=== PATIENT | female | born 1950 | race African-American/Black ===

== ENCOUNTER 2022-02-28 08:04 | Emergency (ER) | payer MEDICARE, OTHER ==
[~2022-02-28] VITALS: Ht 157.5 cm; Wt 122.5 kg
[2022-02-28 09:10] LABS: Basophils # (auto) 0.1 10 ^3/uL (0-0.2); Basophils % (auto) 0.7 % (0.0-2.0); Eosinophils # (auto) 0.3 10 ^3/uL (0-0.8); Eosinophils % (auto) 2.9 % (0.0-7.0); Hematocrit 32.3 % (36.0-46.0); Hemoglobin 10.8 g/dL (12.2-16.2); Lymphocytes # (auto) 1.8 10 ^3/uL (0.4-5.4); Lymphocytes % (auto) 17.6 % (10.0-50.0); Mean Corpuscular Hemoglobin 30.6 pg (28.0-32.0); Mean Corpuscular Hgb Conc. 33.6 g/dL (32.0-36.0); Mean Corpuscular Volume 91.1 fL (80.0-100.0); Monocytes # (auto) 0.8 10 ^3/uL (0-1.3); Monocytes % (auto) 7.4 % (0.0-12.0); Neutrophils # (auto) 7.4 10 ^3/uL (1.6-8.6); Neutrophils % (auto) 71.4 % (37.0-80.0); Nucleated Red Blood Cells % 0.1 %; Red Blood Cells 3.55 10^6/uL (4.0-5.20); Red Cell Distribution Width 14.1 % (11.8-14.3); White Blood Cell 10.4 10^3/uL (4.4-10.8)
[2022-02-28] MEDS ORDERED: CLINDAMYCIN 600 MG/4 ML VL IM ONE (09:30)
[2022-02-28] MEDS ORDERED: LIDOCAINE 1%HCL (LOCAL ANESTH) 10 ML MDV ONE (09:36)
[2022-02-28] MEDS ORDERED: ONDANSETRON ODT 4 MG TAB PO ONE ×2 (09:45→12:45)
[2022-02-28] MEDS ORDERED: cefTRIAXone SOD 1,000 MG VL IM ONE (09:45)
[2022-02-28] MEDS ORDERED: HYDROcodone-ACET 5/325MG TAB PO ONE (09:45)
[2022-02-28] MEDS ORDERED: MORPHINE SULFATE INJECTION 2 MG/ML SYRG IM ONE (12:45)
[2022-02-28] MEDS ORDERED: CLIN300C8 PO (12:50)
[2022-02-28] MEDS ORDERED: CEPH-509 PO (12:50)
[2022-02-28] MEDS ORDERED: ACE3T PO (12:50)
[2022-02-28 12:59] VITALS: BP 134/87
[2022-02-28] MEDS ORDERED: HYDR-4902 PO (13:06)
== END 2022-02-28 13:42 | disposition home or self-care (01) ==
LOC: ER 08:04
DX: N61.1 Abscess of the breast and nipple (principal); I11.0 Hypertensive heart disease with heart failure; I50.9 Heart failure, unspecified; E11.9 Type 2 diabetes mellitus without complications; J44.9 Chronic obstructive pulmonary disease, unspecified; Z79.2 Long term (current) use of antibiotics; Z79.899 Other long term (current) drug therapy; Z88.5 Allergy status to narcotic agent; Z88.8 Allergy status to other drugs, medicaments and biological substances
CPT/HCPCS: 36415; 76642; 85025; 96372; 99285; J0696; J2001; J2270; Q0162

== ENCOUNTER → 2023-11-13 | Outpatient (CLI) | payer MEDICARE, MEDICAID ==
[~2023-11-13] MED LIST: CEPH-509 PO; CLIN300C70 PO; HYDR-4902 PO
== END | disposition home or self-care (01) ==
LOC: RT 09:20
PROVIDERS: ATTEND Internal Medicine Pulmonary Disease
DX: R06.02 Shortness of breath (principal); J44.89 Other specified chronic obstructive pulmonary disease; F17.210 Nicotine dependence, cigarettes, uncomplicated
CPT/HCPCS: 94060; 94727; 94729

== ENCOUNTER → 2023-12-21 | Outpatient (CLI) | payer MEDICARE, MEDICAID | END | disposition home or self-care (01) | LOC: Rad HDHVI 08:09 | PROVIDERS: ATTEND Internal Medicine Cardiovascular Disease | DX: Z01.818 Encounter for other preprocedural examination (principal) | CPT/HCPCS: 93306 ==

== ENCOUNTER → 2023-12-31 | Outpatient (CLI) | payer MEDICARE, MEDICAID ==
[~2023-12-31] VITALS: Ht 157.5 cm; Wt 108.9 kg
[~2023-12-31] MED LIST changes: +ADENOSINE 90 MG/30 ML INJ IV ONE; +ADENOSINE 91 MG in GIVE UN-DILUTED 0 ML IV ONE
== END | disposition home or self-care (01) ==
LOC: Rad HDHVI 08:10
PROVIDERS: ATTEND Internal Medicine Cardiovascular Disease
DX: Z01.810 Encounter for preprocedural cardiovascular examination (principal); I10 Essential (primary) hypertension; E11.9 Type 2 diabetes mellitus without complications; E78.00 Pure hypercholesterolemia, unspecified; J44.9 Chronic obstructive pulmonary disease, unspecified; Z79.84 Long term (current) use of oral hypoglycemic drugs; Z79.899 Other long term (current) drug therapy
CPT/HCPCS: 78452; 93005; 96374; 96375; A9500; J0153

== ENCOUNTER → 2024-05-14 | Outpatient (CLI) | payer MEDICARE, MEDICAID ==
[~2024-05-14] MED LIST changes: -ADENOSINE 90 MG/30 ML INJ IV ONE; -ADENOSINE 91 MG in GIVE UN-DILUTED 0 ML IV ONE; +CLIN1CAP70 PO; -CLIN300C70 PO
[2024-05-14 07:22] LABS: Eosinophils # (auto) 0.2 10 ^3/uL (0-0.8); Hemoglobin 9.8 g/dL (12.2-16.2); White Blood Cell 10.1 10^3/uL (4.4-10.8)
[2024-05-14 07:24] LABS: Basophils # (auto) 0.2 10 ^3/uL (0-0.2); Basophils % (auto) 1.6 % (0.0-2.0); Eosinophils % (auto) 2.3 % (0.0-7.0); Hematocrit 31.3 % (36.0-46.0); Lymphocytes # (auto) 2.5 10 ^3/uL (0.4-5.4); Lymphocytes % (auto) 24.6 % (10.0-50.0); Mean Corpuscular Hemoglobin 25.2 pg (28.0-32.0); Mean Corpuscular Hgb Conc. 31.2 g/dL (32.0-36.0); Mean Corpuscular Volume 80.7 fL (80.0-100.0); Monocytes # (auto) 1.2 10 ^3/uL (0-1.3); Monocytes % (auto) 12.2 % (0.0-12.0); Neutrophils % (auto) 59.3 % (37.0-80.0); Nucleated Red Blood Cells % 0.2 %; Red Blood Cells 3.88 10^6/uL (4.0-5.20); Red Cell Distribution Width 24.9 % (11.8-14.3)
[2024-05-14 08:08] LABS: Alanine Aminotransferase 18 U/L (7-40); Albumin 4.3 g/dL (3.2-4.8); Alkaline Phosphatase 104 U/L (46-116); Anion Gap 9 (5-15); Aspartate Aminotransferase 11 U/L (13-40); BUN/Creatinine Ratio 25.5 (10.0-20.0); Bilirubin, Total 0.2 mg/dL (0.2-1.0); Blood Urea Nitrogen 38 mg/dL (9-23); Calcium 9.4 mg/dL (8.5-10.1); Carbon Dioxide 14 mmol/L (20-30); Chloride 112 mmol/L (98-107); Glucose 76 mg/dL (74-106); Potassium 5.2 mmol/L (3.5-5.1); Sodium 135 mmol/L (136-145); Total Protein 7.4 g/dL (5.7-8.2)
[2024-05-14 08:33] LABS: Anisocytosis Slight; Hypochromia Slight; Platelet Estimate Increased; Target Cell FEW
[2024-05-14 08:42] LABS: Creatinine, Urine 29.39 mg/dL (30.0-125.0)
[2024-05-14 08:48] LABS: Micro Albumin < 3.0 mg/L (<30.0)
[2024-05-15 08:06] LABS: Complement C3 134 mg/dL (82-167); Rheumatoid Arthritis Factor 10.7 IU/mL (<14.0); Thyroid Peroxidase (TPO) Ab 13 IU/mL (0-34)
[2024-05-15 12:06] LABS: Anti-Nuclear Antibody Direct Negative (Negative); Anti-dsDNA Antibody 1 IU/mL (0-9); Antiscleroderma-70 Antibody <0.2 AI (0.0-0.9); RNP Antibody <0.2 AI (0.0-0.9); Sjogren's Anti-SS-A Antibody <0.2 AI (0.0-0.9); Sjogren's Anti-SS-B Antibody <0.2 AI (0.0-0.9); Smith Antibody <0.2 AI (0.0-0.9)
[2024-05-16 12:06] LABS: Actin (Smooth Muscle) Antibody 8 Units (0-19); Mitochondrial (M2) Antibody 24.2 Units (0.0-20.0)
[2024-05-19 12:06] LABS: Anti-Striated Muscle Antibody Negative (Neg:<1:100)
[2024-05-19 13:06] LABS: Antiparietal Cell Antibody 13.5 Units (0.0-20.0)
== END | disposition home or self-care (01) ==
LOC: LAB 07:03
PROVIDERS: ATTEND Internal Medicine
DX: N18.32 Chronic kidney disease, stage 3b (principal); E11.22 Type 2 diabetes mellitus with diabetic chronic kidney disease; D63.1 Anemia in chronic kidney disease
CPT/HCPCS: 36415; 80053; 82043; 82570; 83036; 84443; 85025; 86160; 86225; 86235; 86376; 86431

== ENCOUNTER 2024-07-30 09:39 | Inpatient (IN) | payer MEDICARE, MEDICAID ==
[~2024-07-30] VITALS: Ht 157.5 cm; Wt 118.6 kg
[~2024-07-30 09:39] MED LIST changes: -ALBUAER3 IN; -ALPR2TAB6 PO; -AMLO1TAB22 PO; -ATOR40TA52 PO; -CYCL-839 PO; -FURO40TA4 PO; -GABA300T4 PO; -LABE100T7 PO; -LISI40TA16 PO; -METF-370 PO; -PANT40TA57 PO; -PRO125RS PR; -SEMA2INJ3 SC
[2024-07-30] MEDS ORDERED: CALCIUM GLUC 1,000mg/50ml-NS 50 ML IV SCH (10:30)
[2024-07-30 14:14] VITALS: PULSE 55; RESP 16; O2SAT 99
[2024-07-30 14:32] LABS: Basophils # (auto) 0.2 10 ^3/uL (0-0.2); Basophils % (auto) 1.8 % (0.0-2.0); Eosinophils # (auto) 0.6 10 ^3/uL (0-0.8); Eosinophils % (auto) 6.7 % (0.0-7.0); Hemoglobin 10.2 g/dL (12.2-16.2); Lymphocytes # (auto) 3.3 10 ^3/uL (0.4-5.4); Lymphocytes % (auto) 37.3 % (10.0-50.0); Mean Corpuscular Hemoglobin 29.3 pg (28.0-32.0); Mean Corpuscular Hgb Conc. 31.8 g/dL (32.0-36.0); Mean Corpuscular Volume 92.2 fL (80.0-100.0); Monocytes # (auto) 0.8 10 ^3/uL (0-1.3); Monocytes % (auto) 8.9 % (0.0-12.0); Neutrophils # (auto) 3.9 10 ^3/uL (1.6-8.6); Neutrophils % (auto) 45.3 % (37.0-80.0); Nucleated Red Blood Cells % 0.2 %; Platelet Count (auto) 386 10^3/uL (140-450); Red Blood Cells 3.47 10^6/uL (4.0-5.20); Red Cell Distribution Width 19.9 % (11.8-14.3); White Blood Cell 8.7 10^3/uL (4.4-10.8)
[2024-07-30 14:49] LABS: Anion Gap 7 (5-15); Carbon Dioxide 15 mmol/L (20-30); Chloride 112 mmol/L (98-107); Sodium 134 mmol/L (136-145)
[2024-07-30 14:50] LABS: Calcium 9.3 mg/dL (8.7-10.4)
[2024-07-30 14:54] LABS: Glucose 84 mg/dL (74-106)
[2024-07-30 14:55] LABS: BUN/Creatinine Ratio 21.7 (10.0-20.0); Blood Urea Nitrogen 51 mg/dL (9-23)
[2024-07-30 14:57] LABS: Phosphorus 4.7 mg/dL (2.4-5.1)
[2024-07-30 15:03] LABS: Potassium 6.9 mmol/L (3.5-5.1)
[2024-07-30] MEDS: DEXTROSE (50%) 50ML SYRG IV ONE (15:05)
[2024-07-30] MEDS: InsuLIN REG 1unit/0.01ml Soln (100units/ml) IV ONE (15:05)
[2024-07-30] MEDS: SODIUM BICARB 8.4% 50Meq/50ml SYR Vial IV ONE (15:05)
[2024-07-30] MEDS: CALCIUM GLUC 1,000mg/50ml-NS 50 ML IV SCH (15:05)
[2024-07-30 19:45] VITALS: PULSE 78; RESP 20; O2SAT 97
[2024-07-30] MEDS: MORPHINE SULFATE 4 MG/ML SYR/VIAL IV ONE (20:50)
[2024-07-30] MEDS ORDERED: NITROGLYCERIN 0.4 MG SL TAB SL PRN (21:30)
[2024-07-30] MEDS ORDERED: DEXTROSE (50%) 50ML SYRG IV PRN (21:30)
[2024-07-30] MEDS ORDERED: MORPHINE SULFATE INJ 2 MG/ml SYRG IV PRN (21:30)
[2024-07-30] MEDS: GABAPENTIN 400 MG CAP PO SCH (21:50)
[2024-07-30] MEDS: SODIUM ZIRCONIUM CYCL 10 GM PAK PO ONE (21:50)
[2024-07-30] MEDS: LABETALOL HCL 200 MG TAB PO SCH (21:50)
[2024-07-30] MEDS: ACCU-CHEK COMFORT CURVE STRIP VI SCH (21:59)
[2024-07-30] MEDS: InsuLIN REG 1unit/0.01ml Soln (100units/ml) SC SCH (21:59)
[2024-07-30] MEDS: APIXABAN 5 MG TAB PO SCH (22:01)
[2024-07-30 22:24] LABS: Urine Bacteria None Seen /hpf (None Seen)
[2024-07-30 22:46] LABS: Urine Blood Negative /uL (Negative); Urine Clarity Clear (Clear); Urine Color Light-Yellow (Yellow); Urine Protein, UAD Negative (Negative); Urine Urobilinogen Normal (Negative); Urine WBC 3 /hpf (0 - 5)
[2024-07-30 22:53] LABS: Chloride 113 mmol/L (98-107); Sodium 133 mmol/L (136-145)
[2024-07-30 22:54] LABS: Anion Gap 4 (5-15); Calcium 9.2 mg/dL (8.7-10.4); Carbon Dioxide 16 mmol/L (20-30)
[2024-07-30 22:59] LABS: BUN/Creatinine Ratio 18.7 (10.0-20.0); Blood Urea Nitrogen 44 mg/dL (9-23); Glucose 147 mg/dL (74-106)
[2024-07-30 23:17] LABS: Potassium 6.3 mmol/L (3.5-5.1)
[2024-07-30] MEDS: ALBUMIN 5% 250 ML IV ONE (23:51)
[2024-07-31] VITALS (8 sets, daily range): BP systolic 89–126; BP diastolic 42–71; PULSE 61–68; RESP 18–20; TEMP 97.5–98.1; O2SAT 92–98
[2024-07-31] MEDS: InsuLIN REG 1unit/0.01ml Soln (100units/ml) IV ONE (06:45)
[2024-07-31] MEDS: SODIUM ZIRCONIUM CYCL 10 GM PAK PO ONE (07:03)
[2024-07-31] MEDS: CALCIUM GLUC 1,000mg/50ml-NS 50 ML IV ONE (08:21)
[2024-07-31] MEDS: DEXTROSE (50%) 50ML SYRG IV ONE (08:21)
[2024-07-31] MEDS: SODIUM BICARB 8.4% 50Meq/50ml SYR Vial IV ONE (08:21)
[2024-07-31] MEDS: amLODIPine BESYLATE 5 MG TAB PO SCH (09:01)
[2024-07-31 11:42] LABS: Chloride 111 mmol/L (98-107); Sodium 137 mmol/L (136-145)
[2024-07-31 11:43] LABS: Anion Gap 6 (5-15); Calcium 9.6 mg/dL (8.7-10.4); Carbon Dioxide 20 mmol/L (20-31)
[2024-07-31 11:48] LABS: BUN/Creatinine Ratio 20.7 (10.0-20.0); Blood Urea Nitrogen 46 mg/dL (9-23); Glucose 83 mg/dL (74-106)
[2024-07-31] MEDS ORDERED: METF-370 PO (11:49)
[2024-07-31] MEDS ORDERED: ALPR2TAB6 PO (11:49)
[2024-07-31] MEDS ORDERED: LABE100T7 PO (11:49)
[2024-07-31] MEDS ORDERED: LISI40TA16 PO (11:49)
[2024-07-31] MEDS ORDERED: SEMA2INJ3 SC (11:49)
[2024-07-31] MEDS ORDERED: AMLO1TAB22 PO (11:49)
[2024-07-31] MEDS ORDERED: FURO40TA4 PO (11:49)
[2024-07-31] MEDS ORDERED: ATOR40TA52 PO (11:49)
[2024-07-31] MEDS ORDERED: CYCL-839 PO (11:49)
[2024-07-31] MEDS ORDERED: GABA300T4 PO (11:49)
[2024-07-31] MEDS ORDERED: PANT40TA57 PO (11:49)
[2024-07-31] MEDS ORDERED: PRO125RS PR (11:49)
[2024-07-31] MEDS ORDERED: ALBUAER3 IN (11:49)
[2024-07-31 11:50] LABS: Potassium 6.2 mmol/L (3.5-5.1)
[2024-07-31 13:44] LABS: Basophils # (auto) 0.1 10 ^3/uL (0-0.2); Basophils % (auto) 1.6 % (0.0-2.0); Eosinophils # (auto) 0.6 10 ^3/uL (0-0.8); Eosinophils % (auto) 7.1 % (0.0-7.0); Hematocrit 27.6 % (36.0-46.0); Hemoglobin 8.9 g/dL (12.2-16.2); Lymphocytes # (auto) 2.4 10 ^3/uL (0.4-5.4); Lymphocytes % (auto) 29.8 % (10.0-50.0); Mean Corpuscular Hemoglobin 29.5 pg (28.0-32.0); Mean Corpuscular Hgb Conc. 32.4 g/dL (32.0-36.0); Monocytes % (auto) 12.6 % (0.0-12.0); Neutrophils # (auto) 3.9 10 ^3/uL (1.6-8.6); Neutrophils % (auto) 48.9 % (37.0-80.0); Nucleated Red Blood Cells % 0.1 %; Platelet Count (auto) 361 10^3/uL (140-450); Red Blood Cells 3.03 10^6/uL (4.0-5.20); Red Cell Distribution Width 19.3 % (11.8-14.3); White Blood Cell 7.9 10^3/uL (4.4-10.8)
[2024-07-31 13:52] LABS: Alanine Aminotransferase 28 U/L (7-40); Alkaline Phosphatase 105 U/L (46-116); Anion Gap 6 (5-15); Aspartate Aminotransferase 21 U/L (13-40); Bilirubin, Total 0.3 mg/dL (0.2-1.0); Blood Urea Nitrogen 47 mg/dL (9-23); Calcium 9.7 mg/dL (8.7-10.4); Carbon Dioxide 18 mmol/L (20-31); Chloride 112 mmol/L (98-107); Glucose 81 mg/dL (74-106); Sodium 136 mmol/L (136-145); Total Protein 6.9 g/dL (5.7-8.2)
[2024-07-31 13:54] LABS: Potassium 6.2 mmol/L (3.5-5.1)
[2024-07-31] MEDS: HYDROcodone-ACET 10/325MG TAB PO PRN (15:22)
[2024-07-31] MEDS: SODIUM ZIRCONIUM CYCL 10 GM PAK PO SCH (18:01)
[2024-07-31 19:40] LABS: Alanine Aminotransferase 51 U/L (7-40); Alkaline Phosphatase 131 U/L (46-116); Anion Gap 6 (5-15); Aspartate Aminotransferase 61 U/L (13-40); BUN/Creatinine Ratio 19.8 (10.0-20.0); Bilirubin, Total 0.2 mg/dL (0.2-1.0); Blood Urea Nitrogen 47 mg/dL (9-23); Calcium 9.1 mg/dL (8.7-10.4); Carbon Dioxide 18 mmol/L (20-31); Chloride 112 mmol/L (98-107); Glucose 90 mg/dL (74-106); Sodium 136 mmol/L (136-145); Total Protein 6.9 g/dL (5.7-8.2)
[2024-07-31 20:00] LABS: Potassium 6.5 mmol/L (3.5-5.1)
[2024-08-01] VITALS (8 sets, daily range): BP systolic 100–122; BP diastolic 50–71; PULSE 67–81; RESP 16–20; TEMP 97.5–97.9; O2SAT 94–99
[2024-08-01 06:47] LABS: Basophils # (auto) 0.1 10 ^3/uL (0-0.2); Eosinophils # (auto) 0.6 10 ^3/uL (0-0.8); Hematocrit 25.8 % (36.0-46.0)
[2024-08-01 06:51] LABS: Basophils % (auto) 1.5 % (0.0-2.0); Eosinophils % (auto) 6.9 % (0.0-7.0); Hemoglobin 8.5 g/dL (12.2-16.2); Lymphocytes # (auto) 2.6 10 ^3/uL (0.4-5.4); Lymphocytes % (auto) 31.2 % (10.0-50.0); Mean Corpuscular Hemoglobin 29.8 pg (28.0-32.0); Mean Corpuscular Volume 90.2 fL (80.0-100.0); Monocytes % (auto) 12.4 % (0.0-12.0); Platelet Count (auto) 350 10^3/uL (140-450); Red Blood Cells 2.86 10^6/uL (4.0-5.20); Red Cell Distribution Width 19.2 % (11.8-14.3); White Blood Cell 8.3 10^3/uL (4.4-10.8)
[2024-08-01 07:11] LABS: Alanine Aminotransferase 41 U/L (7-40); Albumin 3.6 g/dL (3.2-4.8); Alkaline Phosphatase 123 U/L (46-116); Anion Gap 6 (5-15); Aspartate Aminotransferase 32 U/L (13-40); BUN/Creatinine Ratio 21.6 (10.0-20.0); Bilirubin, Total < 0.2 mg/dL (0.2-1.0); Blood Urea Nitrogen 47 mg/dL (9-23); Carbon Dioxide 19 mmol/L (20-31); Chloride 113 mmol/L (98-107); Glucose 85 mg/dL (74-106); Sodium 138 mmol/L (136-145); Total Protein 6.3 g/dL (5.7-8.2)
[2024-08-01 07:23] LABS: Potassium 6.5 mmol/L (3.5-5.1)
[2024-08-01] MEDS: SODIUM ZIRCONIUM CYCL 10 GM PAK PO ONE (12:07)
[2024-08-01] MEDS: DEXTROSE (50%) 50ML SYRG IV ONE (12:08)
[2024-08-01] MEDS: InsuLIN REG 1unit/0.01ml Soln (100units/ml) IV ONE (12:08)
[2024-08-01] MEDS: SODIUM CHLORIDE 0.9% 1,000 ML IV ONE (14:53)
[2024-08-01] MEDS: BUMETANIDE 2.5mg/10ml (0.25 mg/ml) INJ IV ONE (14:54)
[2024-08-01] MEDS: FUROSEMIDE 20 MG TAB PO ONE (17:20)
[2024-08-01 17:41] LABS: Chloride 113 mmol/L (98-107); Potassium 5.5 mmol/L (3.5-5.1); Sodium 137 mmol/L (136-145)
[2024-08-01 17:42] LABS: Anion Gap 3 (5-15); Carbon Dioxide 21 mmol/L (20-31)
[2024-08-01 17:48] LABS: BUN/Creatinine Ratio 18.8 (10.0-20.0); Blood Urea Nitrogen 42 mg/dL (9-23); Glucose 90 mg/dL (74-106)
[2024-08-01] MEDS: ONDANSETRON HCL 4 MG/2 ML VIAL IV PRN (22:23)
[2024-08-02] VITALS (8 sets, daily range): BP systolic 96–137; BP diastolic 46–79; PULSE 59–78; RESP 18–20; TEMP 97.6–98.2; O2SAT 94–100
[2024-08-02 08:46] LABS: Urine Bacteria None Seen /hpf (None Seen)
[2024-08-02 08:56] LABS: Urine Blood Negative /uL (Negative); Urine Clarity Clear (Clear); Urine Color Light-Yellow (Yellow); Urine Protein, UAD Negative (Negative); Urine Specific Gravity 1.012 (1.001-1.035); Urine Urobilinogen Normal (Negative); Urine WBC 5 /hpf (0 - 5); Urine pH 5.5 (5.0-9.0)
[2024-08-02 09:09] LABS: Creatinine, Urine 57.95 mg/dL (30.0-125.0)
[2024-08-02] MEDS: FUROSEMIDE 20 MG TAB PO SCH (09:31)
[2024-08-02 11:32] LABS: Alanine Aminotransferase 54 U/L (7-40); Albumin 4.1 g/dL (3.2-4.8); Alkaline Phosphatase 148 U/L (46-116); Anion Gap 6 (5-15); Aspartate Aminotransferase 34 U/L (13-40); BUN/Creatinine Ratio 18.6 (10.0-20.0); Bilirubin, Total 0.2 mg/dL (0.2-1.0); Blood Urea Nitrogen 41 mg/dL (9-23); Calcium 9.2 mg/dL (8.7-10.4); Carbon Dioxide 22 mmol/L (20-31); Chloride 108 mmol/L (98-107); Glucose 95 mg/dL (74-106); Sodium 136 mmol/L (136-145); Total Protein 7.1 g/dL (5.7-8.2)
[2024-08-02 11:34] LABS: Potassium 5.7 mmol/L (3.5-5.1)
[2024-08-02] MEDS: SODIUM CHLORIDE 0.9% 1,000 ML IV SCH (15:23)
[2024-08-02] MEDS: BUMETANIDE 1mg/4ml VIAL (0.25mg/ml) IV SCH (17:36)
[2024-08-02] MEDS: cefTRIAXone 1GM/50ML D5W 50 ML IV ONE (18:17)
[2024-08-03] VITALS (8 sets, daily range): BP systolic 103–134; BP diastolic 46–94; PULSE 67–79; RESP 18–20; TEMP 97.7–98.7; O2SAT 97–100
[2024-08-03] MEDS: cefTRIAXone 1GM/50ML D5W 50 ML IV SCH (08:54)
[2024-08-03 11:17] LABS: Alanine Aminotransferase 43 U/L (7-40); Albumin 4.3 g/dL (3.2-4.8); Alkaline Phosphatase 149 U/L (46-116); Anion Gap 8 (5-15); Aspartate Aminotransferase 25 U/L (13-40); BUN/Creatinine Ratio 16.4 (10.0-20.0); Blood Urea Nitrogen 37 mg/dL (9-23); Calcium 9.4 mg/dL (8.7-10.4); Carbon Dioxide 23 mmol/L (20-31); Chloride 106 mmol/L (98-107); Glucose 102 mg/dL (74-106); Sodium 137 mmol/L (136-145)
[2024-08-03 11:18] LABS: Bilirubin, Total 0.2 mg/dL (0.2-1.0); Total Protein 7.6 g/dL (5.7-8.2)
[2024-08-03 11:41] LABS: Potassium 5.6 mmol/L (3.5-5.1)
[2024-08-03] MEDS: BUMETANIDE 2.5mg/10ml (0.25 mg/ml) INJ IV ONE (13:10)
[2024-08-03 17:10] LABS: CRP High Sensitivity 0.62 mg/dL (<1.0)
[2024-08-03 17:12] LABS: Uric Acid 4.7 mg/dL (3.1-7.8)
[2024-08-03] MEDS: CYCLOBENZAPRINE HCL 10 MG TAB PO ONE (17:20)
[2024-08-03 21:12] LABS: Erythrocyte Sedimentation Rate 54 mm/hr (0-20)
[2024-08-03] MEDS: DOCUSATE SOD 100 MG CAP PO PRN (21:52)
[2024-08-03] MEDS: GABAPENTIN 100 MG CAP PO SCH (21:53)
[2024-08-04] VITALS (8 sets, daily range): BP systolic 94–112; BP diastolic 45–75; PULSE 64–75; RESP 16–19; TEMP 97.1–98.1; O2SAT 93–100
[2024-08-04 06:55] LABS: Alanine Aminotransferase 31 U/L (7-40); Albumin 3.6 g/dL (3.2-4.8); Alkaline Phosphatase 121 U/L (46-116); Anion Gap 7 (5-15); BUN/Creatinine Ratio 16.1 (10.0-20.0); Blood Urea Nitrogen 40 mg/dL (9-23); Calcium 8.9 mg/dL (8.7-10.4); Carbon Dioxide 24 mmol/L (20-31); Chloride 107 mmol/L (98-107); Glucose 92 mg/dL (74-106); Potassium 5.2 mmol/L (3.5-5.1); Sodium 138 mmol/L (136-145)
[2024-08-04 06:56] LABS: Aspartate Aminotransferase 17 U/L (13-40); Bilirubin, Total 0.2 mg/dL (0.2-1.0); Total Protein 6.3 g/dL (5.7-8.2)
[2024-08-04] MEDS: CYCLOBENZAPRINE HCL 10 MG TAB PO PRN (08:34)
[2024-08-04] MEDS ORDERED: LACTULOSE 20Gm/30ML SOLN PO PRN (13:00)
[2024-08-04] MEDS: DEXTROSE (50%) 50ML SYRG IV ONE (13:52)
[2024-08-04] MEDS: InsuLIN REG 1unit/0.01ml Soln (100units/ml) IV ONE (14:18)
[2024-08-04] MEDS: GABAPENTIN 400 MG CAP PO SCH (15:12)
[2024-08-04] MEDS: POLYETHYLENE GLYCOL 17 GM PWDR PO SCH (15:13)
[2024-08-05 01:00] VITALS: BP_SYST 132; BP_SYST 134; BP_DIAS 67; BP_DIAS 79; PULSE 62; PULSE 67; RESP 18; RESP 20; TEMP 97.9; TEMP 98.6; O2SAT 94; O2SAT 99
[2024-08-05] MEDS: MORPHINE SULFATE INJ 2 MG/ml SYRG IV PRN (01:38)
[2024-08-05 05:00] VITALS: BP 107/58; PULSE 68; RESP 19; TEMP 98.3; O2SAT 95
[2024-08-05 08:00] VITALS: PULSE 73
[2024-08-05 09:00] VITALS: BP 123/76; PULSE 74; RESP 18; TEMP 98.5; O2SAT 100
[2024-08-05 09:47] LABS: Chloride 108 mmol/L (98-107); Potassium 4.2 mmol/L (3.5-5.1); Sodium 139 mmol/L (136-145)
[2024-08-05 09:48] LABS: Anion Gap 7 (5-15); Carbon Dioxide 24 mmol/L (20-31)
[2024-08-05 09:53] LABS: BUN/Creatinine Ratio 18.4 (10.0-20.0); Blood Urea Nitrogen 38 mg/dL (9-23); Glucose 115 mg/dL (74-106)
[2024-08-05] MEDS ORDERED: METOCLOPRAMIDE HCL 5MG/ml INJ 2ml VIAL IV ONE (14:30)
[2024-08-05] MEDS: LACTULOSE 20Gm/30ML SOLN PO ONE (16:05)
[2024-08-05 16:52] VITALS: BP 134/79; PULSE 62; RESP 18; TEMP 98.6; O2SAT 94
[2024-08-05 17:00] VITALS: BP 132/72; PULSE 66; RESP 20; TEMP 98.6; O2SAT 97
== END 2024-08-05 18:19 | disposition home or self-care (01) | DRG 425 ==
LOC: ER 09:39 → TELE 21:22 → TELE-EAST 21:22
PROVIDERS: ADMIT Nurse Practitioner; ATTEND Nurse Practitioner Acute Care
DX: E87.5 Hyperkalemia (principal); N17.0 Acute kidney failure with tubular necrosis; E11.22 Type 2 diabetes mellitus with diabetic chronic kidney disease; D63.8 Anemia in other chronic diseases classified elsewhere; N13.6 Pyonephrosis; I13.0 Hypertensive heart and chronic kidney disease with heart failure and stage 1 through stage 4 chronic kidney disease, or unspecified chronic kidney disease; I50.9 Heart failure, unspecified; E11.40 Type 2 diabetes mellitus with diabetic neuropathy, unspecified; Z68.42 Body mass index [BMI] 45.0-49.9, adult; E66.01 Morbid (severe) obesity due to excess calories; J44.9 Chronic obstructive pulmonary disease, unspecified; N18.4 Chronic kidney disease, stage 4 (severe); G89.29 Other chronic pain; M25.511 Pain in right shoulder; K59.00 Constipation, unspecified; Z98.84 Bariatric surgery status; Z90.710 Acquired absence of both cervix and uterus; Z90.49 Acquired absence of other specified parts of digestive tract; Z88.6 Allergy status to analgesic agent; Z83.3 Family history of diabetes mellitus; Z82.49 Family history of ischemic heart disease and other diseases of the circulatory system; Z81.8 Family history of other mental and behavioral disorders; Z79.899 Other long term (current) drug therapy; Z79.84 Long term (current) use of oral hypoglycemic drugs
CPT/HCPCS: 36415; 73030; 73564; 74176; 76775; 80048; 80053; 81001; 82570; 82962; 83735; 84100; 84132; 84300; 84484; 84550; 85025; 85652; 86141; 86431; 87086; 93005; 99291; G0378; J1815; J2405

== ENCOUNTER → 2024-07-30 | Outpatient (CLI) | payer MEDICARE, MEDICAID ==
[~2024-07-30] MED LIST changes: +ALBUAER3 IN; +ALPR2TAB6 PO; +AMLO1TAB22 PO; +ATOR40TA52 PO; +CYCL-839 PO; +FURO40TA4 PO; +GABA300T4 PO; +LABE100T7 PO; +LISI40TA16 PO; +METF-370 PO; +PANT40TA57 PO; +PRO125RS PR; +SEMA2INJ3 SC
[2024-07-30 07:58] LABS: Basophils # (auto) 0.2 10 ^3/uL (0-0.2); Basophils % (auto) 2.1 % (0.0-2.0); Eosinophils # (auto) 0.5 10 ^3/uL (0-0.8); Eosinophils % (auto) 5.9 % (0.0-7.0); Hematocrit 31.8 % (36.0-46.0); Hemoglobin 10.5 g/dL (12.2-16.2); Lymphocytes # (auto) 2.1 10 ^3/uL (0.4-5.4); Lymphocytes % (auto) 26.4 % (10.0-50.0); Mean Corpuscular Hemoglobin 29.7 pg (28.0-32.0); Mean Corpuscular Hgb Conc. 32.8 g/dL (32.0-36.0); Mean Corpuscular Volume 90.3 fL (80.0-100.0); Monocytes # (auto) 0.7 10 ^3/uL (0-1.3); Monocytes % (auto) 8.4 % (0.0-12.0); Neutrophils # (auto) 4.6 10 ^3/uL (1.6-8.6); Neutrophils % (auto) 57.2 % (37.0-80.0); Nucleated Red Blood Cells % 0.1 %; Platelet Count (auto) 439 10^3/uL (140-450); Red Blood Cells 3.53 10^6/uL (4.0-5.20); Red Cell Distribution Width 19.2 % (11.8-14.3)
[2024-07-30 08:40] LABS: Chloride 111 mmol/L (98-107); Sodium 135 mmol/L (136-145)
[2024-07-30 08:41] LABS: Anion Gap 8 (5-15); Calcium 9.8 mg/dL (8.7-10.4); Carbon Dioxide 16 mmol/L (20-30)
[2024-07-30 08:46] LABS: Glucose 93 mg/dL (74-106)
[2024-07-30 08:47] LABS: Blood Urea Nitrogen 46 mg/dL (9-23)
[2024-07-30 08:51] LABS: BUN/Creatinine Ratio 20.4 (10.0-20.0)
[2024-07-30 09:04] LABS: Potassium 7.2 mmol/L (3.5-5.1)
== END | disposition home or self-care (01) ==
LOC: LAB 07:45
PROVIDERS: ATTEND Internal Medicine
DX: E11.22 Type 2 diabetes mellitus with diabetic chronic kidney disease (principal); N18.30 Chronic kidney disease, stage 3 unspecified
CPT/HCPCS: 36415; 80048; 83036; 85025

== ENCOUNTER → 2024-08-14 | Outpatient (CLI) | payer MEDICARE, MEDICAID ==
[~2024-08-14] MED LIST changes: +ALBUAER3 IN; +ALPR2TAB6 PO; +AMLO1TAB22 PO; +ATOR40TA52 PO; +CYCL-839 PO; +FURO40TA4 PO; +GABA300T4 PO; +LABE100T7 PO; +METF-370 PO; +PANT40TA57 PO; +PRO125RS PR; +SEMA2INJ3 SC
[2024-08-14 07:32] LABS: Calcium 9.7 mg/dL (8.7-10.4); Chloride 112 mmol/L (98-107); Potassium 4.9 mmol/L (3.5-5.1); Sodium 138 mmol/L (136-145)
[2024-08-14 07:33] LABS: Anion Gap 7 (5-15); Carbon Dioxide 19 mmol/L (20-31)
[2024-08-14 07:39] LABS: BUN/Creatinine Ratio 16.4 (10.0-20.0); Blood Urea Nitrogen 31 mg/dL (9-23); Glucose 90 mg/dL (74-106)
== END | disposition home or self-care (01) ==
LOC: LAB 06:27
PROVIDERS: ATTEND Internal Medicine
DX: E11.22 Type 2 diabetes mellitus with diabetic chronic kidney disease (principal); N18.9 Chronic kidney disease, unspecified
CPT/HCPCS: 36415; 80048

== ENCOUNTER → 2024-11-17 | Outpatient (CLI) | payer MEDICARE, MEDICAID ==
[2024-11-17 07:44] LABS: Basophils # (auto) 0.1 10 ^3/uL (0-0.2); Hemoglobin 8.4 g/dL (12.2-16.2); Lymphocytes # (auto) 2.3 10 ^3/uL (0.4-5.4); Nucleated Red Blood Cells % 0.1 %
[2024-11-17 07:47] LABS: Basophils % (auto) 1.1 % (0.0-2.0); Eosinophils # (auto) 0.4 10 ^3/uL (0-0.8); Eosinophils % (auto) 4.3 % (0.0-7.0); Hematocrit 26.3 % (36.0-46.0); Lymphocytes % (auto) 25.9 % (10.0-50.0); Mean Corpuscular Hgb Conc. 31.8 g/dL (32.0-36.0); Mean Corpuscular Volume 84.9 fL (80.0-100.0); Monocytes # (auto) 0.9 10 ^3/uL (0-1.3); Monocytes % (auto) 10.2 % (0.0-12.0); Neutrophils # (auto) 5.3 10 ^3/uL (1.6-8.6); Neutrophils % (auto) 58.5 % (37.0-80.0); Platelet Count (auto) 525 10^3/uL (140-450); Red Cell Distribution Width 15.1 % (11.8-14.3)
[2024-11-17 07:52] LABS: Urine Bacteria FEW /hpf (None Seen); Urine Blood Negative /uL (Negative); Urine Clarity Clear (Clear); Urine Color Light-Yellow (Yellow); Urine Protein, UAD Negative (Negative); Urine Specific Gravity 1.012 (1.001-1.035); Urine Squamous Epithelial Cell FEW /hpf (<5); Urine Urobilinogen Normal (Negative); Urine WBC 1 /hpf (0 - 5); Urine pH 6.5 (5.0-9.0)
[2024-11-17 08:24] LABS: Alanine Aminotransferase 13 U/L (7-40); Albumin 4.2 g/dL (3.2-4.8); Alkaline Phosphatase 105 U/L (46-116); Amylase 84 U/L (30-118); Anion Gap 9 (5-15); Aspartate Aminotransferase 12 U/L (13-40); BUN/Creatinine Ratio 17.8 (10.0-20.0); Bilirubin, Total 0.2 mg/dL (0.2-1.0); Blood Urea Nitrogen 29 mg/dL (9-23); Calcium 9.4 mg/dL (8.7-10.4); Carbon Dioxide 23 mmol/L (20-31); Chloride 109 mmol/L (98-107); Glucose 86 mg/dL (74-106); Potassium 4.6 mmol/L (3.5-5.1); Sodium 141 mmol/L (136-145); Total Protein 7.4 g/dL (5.7-8.2)
[2024-11-17 08:53] LABS: Lipase 37 U/L (12-53)
[2024-11-17 12:04] LABS: Folate (Folic Acid) 13.72 ng/mL (>5.38)
== END | disposition home or self-care (01) ==
LOC: LAB 07:14
PROVIDERS: ATTEND Internal Medicine
DX: E11.22 Type 2 diabetes mellitus with diabetic chronic kidney disease (principal); N18.4 Chronic kidney disease, stage 4 (severe); R42 Dizziness and giddiness; F11.20 Opioid dependence, uncomplicated
CPT/HCPCS: 36415; 80053; 81001; 82150; 82607; 82746; 83690; 85025

== ENCOUNTER → 2024-12-18 | Outpatient (CLI) | payer MEDICARE, MEDICAID ==
[2024-12-18 08:04] LABS: Alanine Aminotransferase 11 U/L (7-40); Alkaline Phosphatase 94 U/L (46-116); Anion Gap 11 (5-15); Calcium 9.5 mg/dL (8.7-10.4); Carbon Dioxide 20 mmol/L (20-31); Chloride 106 mmol/L (98-107); Glucose 96 mg/dL (74-106); Potassium 4.9 mmol/L (3.5-5.1); Sodium 137 mmol/L (136-145); Triglycerides 70 mg/dL (< 150)
[2024-12-18 08:05] LABS: Albumin 4.2 g/dL (3.2-4.8); Aspartate Aminotransferase 13 U/L (13-40); Blood Urea Nitrogen 35 mg/dL (9-23); Cholesterol 107 mg/dL (< 200); LDL Cholesterol 44 mg/dL (< 100)
[2024-12-18 08:06] LABS: HDL Cholesterol 48 mg/dL (40-59); Total Protein 7.2 g/dL (5.7-8.2)
[2024-12-18 10:00] LABS: Bilirubin, Total 0.3 mg/dL (0.2-1.0)
== END | disposition home or self-care (01) ==
LOC: LAB 07:14
PROVIDERS: ATTEND Internal Medicine
DX: E11.22 Type 2 diabetes mellitus with diabetic chronic kidney disease (principal); N18.32 Chronic kidney disease, stage 3b; E04.1 Nontoxic single thyroid nodule; D63.1 Anemia in chronic kidney disease; R10.9 Unspecified abdominal pain
CPT/HCPCS: 36415; 80053; 80061; 83036; 84443

== ENCOUNTER → 2025-02-23 | Outpatient (CLI) | payer MEDICAID ==
[2025-02-23 09:46] LABS: Hemoglobin 7.7 g/dL (12.2-16.2); Platelet Count (auto) 580 10^3/uL (140-450); White Blood Cell 9.3 10^3/uL (4.4-10.8)
[2025-02-23 09:48] LABS: Basophils # (auto) 0.1 10 ^3/uL (0-0.2); Basophils % (auto) 0.8 % (0.0-2.0); Eosinophils # (auto) 0.4 10 ^3/uL (0-0.8); Eosinophils % (auto) 3.8 % (0.0-7.0); Hematocrit 24.3 % (36.0-46.0); Lymphocytes % (auto) 21.5 % (10.0-50.0); Mean Corpuscular Hemoglobin 23.6 pg (28.0-32.0); Mean Corpuscular Hgb Conc. 31.6 g/dL (32.0-36.0); Mean Corpuscular Volume 74.9 fL (80.0-100.0); Monocytes # (auto) 0.8 10 ^3/uL (0-1.3); Monocytes % (auto) 9.1 % (0.0-12.0); Neutrophils % (auto) 64.8 % (37.0-80.0); Nucleated Red Blood Cells % 0.1 %; Red Blood Cells 3.25 10^6/uL (4.0-5.20); Red Cell Distribution Width 22.6 % (11.8-14.3)
[2025-02-23 09:51] LABS: Potassium 4.2 mmol/L (3.5-5.1); Sodium 140 mmol/L (136-145)
[2025-02-23 09:52] LABS: Anion Gap 8 (5-15); Calcium 9.1 mg/dL (8.7-10.4)
[2025-02-23 09:57] LABS: BUN/Creatinine Ratio 19.5 (10.0-20.0); Glucose 104 mg/dL (74-106)
[2025-02-23 09:58] LABS: Blood Urea Nitrogen 29 mg/dL (9-23); Carbon Dioxide 20 mmol/L (20-31); Chloride 112 mmol/L (98-107)
[2025-02-23 11:21] LABS: Free T3 3.03 pg/mL (2.3-4.2)
[2025-02-23 11:22] LABS: Free T4 (Free Thyroxine) 0.86 ng/dL (0.89-1.76)
== END | disposition home or self-care (01) ==
LOC: LAB 09:06
PROVIDERS: ATTEND Internal Medicine
DX: E11.42 Type 2 diabetes mellitus with diabetic polyneuropathy (principal); D64.9 Anemia, unspecified; R42 Dizziness and giddiness
CPT/HCPCS: 36415; 80048; 84439; 84443; 84481; 85025

== ENCOUNTER 2025-05-20 08:38 | Outpatient (CLI) | payer MEDICARE, MEDICAID ==
[2025-05-20 09:09] LABS: Hematocrit 36.7 % (36.0-46.0); Hemoglobin 11.9 g/dL (12.2-16.2); Mean Corpuscular Hemoglobin 27.7 pg (28.0-32.0); Mean Corpuscular Volume 85.7 fL (80.0-100.0); Nucleated Red Blood Cells % 0.0 %
[2025-05-20 10:14] LABS: Anion Gap 10 (5-15); Carbon Dioxide 21 mmol/L (20-31); Potassium 4.4 mmol/L (3.5-5.1); Sodium 141 mmol/L (136-145)
[2025-05-20 10:16] LABS: Calcium 10.3 mg/dL (8.7-10.4)
[2025-05-20 10:20] LABS: BUN/Creatinine Ratio 16.0 (10.0-20.0); Blood Urea Nitrogen 20 mg/dL (9-23); Glucose 84 mg/dL (74-106)
[2025-05-20 10:25] LABS: Chloride 110 mmol/L (98-107); Microalb/Creat Ratio, Urine < 3.0
== END 2025-05-20 17:00 | disposition home or self-care (01) ==
LOC: LAB 08:38
PROVIDERS: ATTEND Internal Medicine
DX: N18.32 Chronic kidney disease, stage 3b (principal); R73.03 Prediabetes
CPT/HCPCS: 36415; 80048; 82043; 82306; 82570; 82607; 85025

== ENCOUNTER → 2025-08-26 | Outpatient (CLI) | payer MEDICARE, MEDICAID ==
[2025-08-26 08:04] LABS: Hemoglobin 8.4 g/dL (12.2-16.2); Nucleated Red Blood Cells % 0.0 %
[2025-08-26 08:06] LABS: Hematocrit 26.8 % (36.0-46.0); Mean Corpuscular Hemoglobin 28.4 pg (28.0-32.0); Mean Corpuscular Volume 89.9 fL (80.0-100.0)
[2025-08-26 12:22] LABS: Alanine Aminotransferase 10 U/L (7-40); Alkaline Phosphatase 87 U/L (46-116); Anion Gap 11 (5-15); Calcium 9.2 mg/dL (8.7-10.4); Carbon Dioxide 21 mmol/L (20-31); Glucose 81 mg/dL (74-106); Potassium 4.7 mmol/L (3.5-5.1); Sodium 140 mmol/L (136-145); Triglycerides 80 mg/dL (< 150)
[2025-08-26 12:23] LABS: Albumin 4.2 g/dL (3.2-4.8); Total Protein 7.4 g/dL (5.7-8.2)
[2025-08-26 12:24] LABS: Cholesterol 125 mg/dL (< 200)
[2025-08-26 12:29] LABS: BUN/Creatinine Ratio 18.6 (10.0-20.0)
[2025-08-26 12:48] LABS: Bilirubin, Total 0.3 mg/dL (0.2-1.0); Blood Urea Nitrogen 27 mg/dL (9-23); Chloride 108 mmol/L (98-107)
[2025-08-26 12:49] LABS: HDL Cholesterol 62 mg/dL (40-59)
== END | disposition home or self-care (01) ==
LOC: LAB 07:24
PROVIDERS: ATTEND Internal Medicine
DX: E11.9 Type 2 diabetes mellitus without complications (principal); E78.5 Hyperlipidemia, unspecified; D64.9 Anemia, unspecified; Z12.11 Encounter for screening for malignant neoplasm of colon
CPT/HCPCS: 36415; 80053; 80061; 83036; 84443; 85025

== ENCOUNTER 2025-10-05 07:26 | Outpatient (CLI) | payer MEDICARE, MEDICAID ==
[2025-10-05 08:19] LABS: Anion Gap 10 (5-15); Carbon Dioxide 23 mmol/L (20-31); Potassium 4.1 mmol/L (3.5-5.1); Sodium 142 mmol/L (136-145)
[2025-10-05 08:20] LABS: Calcium 9.1 mg/dL (8.7-10.4)
[2025-10-05 08:25] LABS: BUN/Creatinine Ratio 20.0 (10.0-20.0)
[2025-10-05 08:34] LABS: Chloride 109 mmol/L (98-107); Glucose 118 mg/dL (74-106)
[2025-10-05 08:35] LABS: Blood Urea Nitrogen 25 mg/dL (9-23)
== END 2025-10-05 17:00 | disposition home or self-care (01) ==
LOC: LAB 07:26
PROVIDERS: ATTEND Internal Medicine
DX: E11.9 Type 2 diabetes mellitus without complications (principal); Z12.11 Encounter for screening for malignant neoplasm of colon
CPT/HCPCS: 36415; 80048

== ENCOUNTER 2025-10-20 10:35 | Outpatient (CLI) | payer MEDICARE, MEDICAID | END 2025-10-20 17:00 | disposition home or self-care (01) | LOC: Rad HDHVI 10:35 | PROVIDERS: ATTEND Internal Medicine Cardiovascular Disease | DX: I34.0 Nonrheumatic mitral (valve) insufficiency (principal); I51.7 Cardiomegaly; R07.89 Other chest pain; E78.5 Hyperlipidemia, unspecified | CPT/HCPCS: 93306 ==